=== PATIENT | female | born 1940 | race Caucasian/White ===

== ENCOUNTER 2016-07-25 09:56 | Day surgery (SDC) | payer BC ==
--- NOTE | ~2016-07-25 | EGD ---
EGD REPORT [facility] [address] [place]. [id number] NAME: ARPITA DUMAS : [birth year] STATUS : REG [facility] PAT#: [id number] AGE: 76 ADM/REG DATE : 07/25/16 MR#: [id number] REPORT SERV DATE: 07/25/16 DICTATED BY: APRIL MONTANEZ DATE: 07/25/16 REPORT STATUS : Draft TRANSCRIBED BY: [facility] DATE: 07/25/16 [facility] Center Patient Name: Arpita Dumas Date of : 1940 Attending MD: APRIL MONTANEZ MD Procedure Date No Time: 07/25/2016 Procedure: Colonoscopy Indications: FH of Colon Cancer - 1st degree relative, Abnormal CT of the GI tract Referring MD: MILI DELANEY MD, AMOS MILAN MD Medicines: as per anesthesia Complications: No immediate complications. Procedure: After I obtained informed consent, the scope was passed under direct vision. Throughout the procedure, the patient's blood pressure, pulse, and oxygen saturations were monitored continuously. The PCF [id number] was introduced through the anus and advanced to the cecum, identified by appendiceal orifice and ileocecal valve. The colonoscopy was somewhat difficult due to restricted mobility of the colon, significant looping and a tortuous colon. The patient tolerated the procedure. The quality of the bowel preparation was fair. Findings: The perianal and digital rectal examinations were normal. Internal hemorrhoids were found during endoscopy and were mild. Impression: - Internal hemorrhoids. Recommendation: - Repeat colonoscopy in 5 years for surveillance. Procedure Code(s): --- Professional --- 53248, Colonoscopy, flexible, proximal to splenic flexure; diagnostic, with or without collection of specimen(s) by brushing or washing, with or without colon decompression (separate procedure) Diagnosis Code(s): --- Professional --- K64.8, Other hemorrhoids Z80.0, Family history of malignant neoplasm of digestive organs R93.3, Abnormal findings on diagnostic imaging of other parts of digestive tract EGD REPORT [place] [id number] [place] [id number] NAME: ARPITA DUMAS : [birth year] STATUS : REG [facility]#: [id number] AGE: 76 ADM/REG DATE : 07/25/16 MR#: [id number] REPORT SERV DATE: 07/25/16 DICTATED BY: APRIL MONTANEZ. DATE: 07/25/16 REPORT STATUS : Draft TRANSCRIBED BY: [employer] DATE: 07/25/16 CPT copyright 2013 [employer]. All rights reserved. The codes documented in this report are preliminary and upon business applications manager review may be revised to meet current compliance requirements. APRIL MONTANEZ MD 07/25/2016 2:21 PM This report has been signed electronically. Number of Addenda: 0 Note Initiated On: 07/25/2016 1:47 PM [facility] [place] [id number]
[~2016-07-25 09:56] MED LIST: ASAB PO; AVAPRO300 MG PO; KLOR-CON M1010 MEQ PO; KLOR-CON M2020 MEQ PO; LEVOTHROID100 MCG PO; LEVOTHYROXIN100 MCG PO; MAXZIDE PO; MULTI-VIT HP PO; PRIN20 PO; RELA5 PO; VITAMIN D31000 UNIT PO
== END 2016-07-25 23:59 | disposition home or self-care (01) ==
LOC: DMU 09:56
PROVIDERS: Internal Medicine Gastroenterology
PROC: 0DJD8ZZ Inspection of Lower Intestinal Tract, Via Natural or Artificial Opening Endoscopic (ICD-10-PCS; principal; 2016-07-25 11:30)
DX: K64.8 Other hemorrhoids (principal); I10 Essential (primary) hypertension; Z80.0 Family history of malignant neoplasm of digestive organs; Z88.1 Allergy status to other antibiotic agents; Z85.118 Personal history of other malignant neoplasm of bronchus and lung; Z79.899 Other long term (current) drug therapy; Z90.89 Acquired absence of other organs; Z90.49 Acquired absence of other specified parts of digestive tract; Z98.890 Other specified postprocedural states; Z96.653 Presence of artificial knee joint, bilateral